=== PATIENT | male | born 1975 | race Caucasian/White ===

== ENCOUNTER 2016-06-08 18:07 | Emergency (ER) | payer OTHER ==
[~2016-06-08] VITALS: Ht 180.3 cm; Wt 77.1 kg
[~2016-06-08 18:07] MED LIST: ACETAMINOPHEN/O1 TAB PO; LAMICTAL 25MG25 MG PO; PENICILLIN V P500 MG PO; ZYPREXA10 MG PO
[2016-06-08] MEDS ORDERED: OLANZAPINE10 M1 PO (21:06)
--- NOTE | 2016-06-08 21:06 | ED PSYCHIATRIC COMPLAINT ---
History of Present Illness General Chief Complaint: General Adult Stated Complaint: MED REFILL Source: patient Exam Limitations: no limitations Vital Signs & Intake/Output Vital Signs & Intake/Output Vital Signs Date Time Temp Pulse Resp B/P Pulse O2 O2 Flow FiO2 Ox Delivery Rate 06/089 98.2 89 18 128/74 96 06/08 1832 97.3 98 18 132/88 97 Room Air Allergies Coded Allergies: NO KNOWN ALLERGIES (04/15/15) Triage Note: PT SUFFERS OF BIPOLAR DISORDER AND IS NOW OUT OF HIS MEDICATIONS. REQUESTING OLANZAPINE 10 MG PO ONCE DAILY. HAS BEEN OFF HIS MEDICATION 4 DAYS NOW. Triage Nurses Notes Reviewed? yes HPI: This patient is a 41 year old male with a past medical history including bipolar disorder who presented to the emergency department today requesting a medication refill. The patient reported that he takes olanzapine 10 mg daily. He reported that he ran out of his prescription and was supposed to see his doctor for a refill today, but missed the appointment due to work. The patient reported that he call the office and they told him that the doctor would call in his prescription however, the pharmacy told him that he never did. The patient reported that he is going to call again tomorrow for another appointment, but is requesting a medication refill to get him through the next couple of days. The patient reported that he feels like he is coming down from a manic episode right now. He reported that he is having some knots in his stomach, but otherwise offers no complaints. (JUDY WAN,GLORY) Reconcile Medications Lamotrigine (Lamictal 25MG) 25 MG TAB 1 TAB PO DAILY MENTAL HEALTH (Reported) Olanzapine (Zyprexa) 10 MG TAB 10 MG PO QHS MENTAL HEALTH (Reported) (SUSAN CAVANAUGH,ISAURA Weston) Past History Travel History Traveled to [place] past 21 day No Medical History Any Pertinent Medical History? see below for history Neurological: NONE EENT: NONE Cardiovascular: NONE Respiratory: NONE Gastrointestinal: NONE Hepatic: HEP C Renal: NONE Musculoskeletal: NONE Psychiatric: bipolar disease, opioid dependence, substance abuse Endocrine: NONE Blood Disorders: NONE Cancer(s): NONE Other Medical Hx: Hep C 2005 untreated. HIV negative 2 years ago History of MRSA: No History of VRE: No History of CDIFF: No Surgical History Surgical History: N Psychosocial History Who do you live with Friend What is your primary language Estonian Tobacco Use: Current Daily Use Daily Tobacco Use Amount/Type: => 5 Cigarettes daily Family History Family History, If Any: MOTHER *No pertinent family history FH: diabetes mellitus Hx Contributory? No (GLORY KIM PA-C) Review of Systems Review of Systems Constitutional: Reports: no symptoms. EENTM: Reports: no symptoms. Respiratory: Reports: no symptoms. Cardiovascular: Reports: no symptoms. GI: Reports: no symptoms. Musculoskeletal: Reports: no symptoms. Skin: Reports: no symptoms. Neurological/Psychological: Reports: see HPI. All Other Systems: Reviewed and Negative (GLORY KIM PA-C) Physical Exam Physical Exam General Appearance: well developed/nourished, no apparent distress, alert, awake Neurological/Psychiatric: no motor/sensory deficits, awake, alert, normal mood/ affect, calm, social services aide II-XII nml as tested, oriented x 3 Comments: Well-developed well-nourished person in no acute distress HEENT: Normal EENT exam, head normocephalic, moist mucous membranes Pupils equally round and reactive to light. Back: Normal gait Respiratory: No respiratory distress. Speaking in full sentences Extremity: Normal and equal pulses Neuro: Alert oriented x3, motor sensory normal, cranial nerves II through XII grossly intact. Skin: No appreciable rash on exposed skin, skin is warm and dry. Psych: Mood and affect is normal. Pressures speach SAD PERSONS Done? patient not suicidal (GLORY KIM PA-C) Progress Differential Diagnosis: drug intoxication, drug overdose, drug withdrawal, bipolar disorder, medication refill, medication seeking, medication reaction Plan of Care: this patient is a 41-year-old male who presented requesting a medication refill of 10 mg of olanzapine daily. The patient missed his appointment with his doctor today and will be getting a refill on his prescription within the next week. The patient offered no other complaints. (GLORY KIM PA-C) Departure Departure Disposition: HOME OR SELF CARE Condition: Stable Clinical Impression Primary Impression: Medication refill Referrals: PATIENT HAS NO PRIMARY CARE DR (PCP/Family) Additional Instructions: Take medication as prescribed. Please call to make a follow-up appointment with your primary care physician. Return for any worsening symptoms or concerns. Departure Forms: Customer Survey General Discharge Information (GLORY KIM PA-C) PA/PRESS SET UP PERSON Co-Sign Statement Statement: ED Attending supervision documentation- [] I saw and evaluated the patient. I have also reviewed all the pertinent lab results and diagnostic results. I agree with the findings and the plan of care as documented in the PA's/PRESS SET UP PERSON's documentation. [X] I have reviewed the ED Record and agree with the PA's/PRESS SET UP PERSON's documentation. [] Additions or exceptions (if any) to the PAs/PRESS SET UP PERSON's note and plan are summarized below: [] (SUSAN CAVANAUGH,ISAURA Weston)
[2016-06-08 21:19] VITALS: BP 128/74
== END 2016-06-08 21:19 ==
LOC: ERH 18:07
DX: Z76.0 Encounter for issue of repeat prescription (principal)
CPT/HCPCS: 99281